=== PATIENT | male | born 1960 | race Hispanic/Latino ===

== ENCOUNTER 2018-11-22 09:54 | Emergency (ER) | payer BC ==
[2018-11-22 09:58] VITALS: BMI 34.7
[2018-11-22 10:01] VITALS: RESP 18; TEMP 98.4
[2018-11-22] MEDS ORDERED: Sodium Chloride 0.9% 500 ML IV STA ×2 (10:34→11:09)
--- NOTE | 2018-11-22 10:38 | ED PDOC ---
Arrival/HPI - History of Present Illness Narrative History of Present Illness (Text): 11/22/18 10:39 Patient is a 58 year old male with past medical history of Hodgkin's lymphoma s/p chemo and radiation, hypertension, obesity presenting with chief complaint of feeling dehydrated and anxious over the past few weeks. Patient states that recently he has been having poor PO intake and this has been causing him concern regarding the recurrence of his lymphoma. Denies fevers, chills, headache, dizziness, nausea, vomiting, chest pain, shortness of breath, abdominal pain, diarrhea, dysuria. Time/Duration: > week Symptom Onset: Gradual Symptom Course: Unchanged Severity Level: Mild <Curly Blakely L - Last Filed: 11/22/18 15:20> Past Medical History - Provider Review Nursing Documentation Reviewed: Yes - Cardiac Hx Cardiac Disorders: Yes Hx Hypertension: Yes Hx Pacemaker: No - Pulmonary Hx Respiratory Disorders: No - Neurological Hx Neurological Disorder: No Hx Paralysis: No - HEENT Hx HEENT Disorder: No - Renal Hx Renal Disorder: No - Hematological/Oncological Hx Blood Disorders: Yes Hx Blood Transfusions: No Hx Cancer: (Hodgkin's Lymphoma) - Integumentary Hx Dermatological Disorder: No - Musculoskeletal/Rheumatological Hx Musculoskeletal Disorders: No - Gastrointestinal Hx Gastrointestinal Disorders: Yes Hx Gastroesophageal Reflux: Yes - Genitourinary/Gynecological Hx Genitourinary Disorders: No - Psychiatric Hx Psychophysiologic Disorder: Yes Hx Anxiety: Yes Hx Emotional Abuse: No Hx Physical Abuse: No Hx Substance Use: No - Surgical History Hx Orthopedic Surgery: Yes - Anesthesia Hx Anesthesia Reactions: No Hx Malignant Hyperthermia: No - Suicidal Assessment Feels Threatened In Home Enviroment: No <Curly Blakely - Last Filed: 11/22/18 15:20> Family/Social History - Physician Review Nursing Documentation Reviewed: Yes Family/Social History: No Known Family HX Smoking Status: Never Smoked Hx Alcohol Use: Yes (SOCIALLY) Hx Substance Use: No <Curly Blakely - Last Filed: 11/22/18 15:20> Allergies/Home Meds <Curly Blakely - Last Filed: 11/22/18 15:20> <Ady Rashid L - Last Filed: 11/22/18 18:12> Allergies/Adverse Reactions: Allergies No Known Allergies Allergy (Verified 11/22/18 10:27) Home Medications: Home Meds Medication Instructions Recorded Confirmed Olmesartan/Hydrochlorothiazide 1 tab PO DAILY 11/22/18 11/22/18 [Benicar Hct 20-12.5 mg Tablet] Omeprazole Magnesium [Prilosec Otc] 20 mg PO DAILY 11/22/18 11/22/18 Review of Systems - Physician Review All systems were reviewed & negative as marked: Yes - Review of Systems Constitutional: Normal Respiratory: Normal Cardiovascular: Normal Gastrointestinal: Normal <ZoraCurly L - Last Filed: 11/22/18 15:20> Physical Exam Vital Signs Reviewed: Yes Vital Signs Temp Pulse Resp BP Pulse Ox 11/22/18 10:00 98.4 F 105 H 18 144/99 H 96 Temperature: Afebrile Blood Pressure: Hypertensive Pulse: Regular Respiratory Rate: Normal Appearance: Positive for: Well-Appearing, Comfortable Pain Distress: None Mental Status: Positive for: Alert and Oriented X 3 - Systems Exam Head: Present: Atraumatic, Normocephalic Pupils: Present: PERRL Extroacular Muscles: Present: EOMI Conjunctiva: Present: Normal Mouth: Present: Moist Mucous Membranes Respiratory/Chest: Present: Clear to Auscultation, Good Air Exchange. No: Respiratory Distress, Accessory Muscle Use Cardiovascular: Present: Regular Rate and Rhythm, Normal S1, S2 Abdomen: Present: Normal Bowel Sounds. No: Tenderness, Distention Lower Extremity: Present: Normal Inspection. No: Edema Neurological: Present: GCS=15, CN II-XII Intact, Speech Normal Skin: Present: Warm, Dry, Normal Color Lymphatic: No: Cervical Adenopathy Psychiatric: Present: Alert, Oriented x 3 <Curly Blakely L - Last Filed: 11/22/18 15:20> Vital Signs Temp Pulse Resp BP Pulse Ox 11/22/18 10:00 98.4 F 105 H 18 144/99 H 96 Temperature: Afebrile Blood Pressure: Normal Pulse: Regular Respiratory Rate: Normal Appearance: Positive for: Well-Appearing, Non-Toxic, Comfortable Pain Distress: None Mental Status: Positive for: Alert and Oriented X 3 - Systems Exam Head: Present: Atraumatic, Normocephalic Pupils: Present: PERRL Extroacular Muscles: Present: EOMI Conjunctiva: Present: Normal Mouth: Present: Moist Mucous Membranes Neck: Present: Normal Range of Motion Respiratory/Chest: Present: Clear to Auscultation, Good Air Exchange. No: Resp iratory Distress, Accessory Muscle Use Cardiovascular: Present: Regular Rate and Rhythm, Normal S1, S2. No: Murmurs Abdomen: Present: Normal Bowel Sounds. No: Tenderness, Distention, Peritoneal Signs Back: Present: Normal Inspection Upper Extremity: Present: Normal Inspection. No: Cyanosis, Edema Lower Extremity: Present: Normal Inspection. No: Edema Neurological: Present: GCS=15, CN II-XII Intact, Speech Normal Skin: Present: Warm, Dry, Normal Color. No: Rashes Psychiatric: Present: Alert, Oriented x 3, Normal Insight, Normal Concentration <Ady Rashid L - Last Filed: 11/22/18 18:12> Medical Decision Making ED Course and Treatment: 11/22/18 10:46 Impression: 58 year old male with feeling of dehydration and anxiety Plan: - CBC, CMP - IVF - Ativan - Metformin - Reassess and disposition Prior Visits: Notes and results from previous visits were reviewed. Progress Notes: 11/22/18 13:32 Diabetic nurse educator at bedside. - Medication Orders Current Medication Orders: Sodium Chloride (Sodium Chloride 0.9%) 500 mls @ 999 mls/hr IV .Q31M STA Stop: 11/22/18 11:04 Lorazepam (Ativan) 1 mg IVP ONCE ONE; Protocol Stop: 11/22/18 10:35 <Curly Blakely L - Last Filed: 11/22/18 15:20> ED Course and Treatment: 11/22/18 11:08 Patient Seen with Resident: In agreement with resident note which contains more details about the patient. Patient seen and evaluated with resident. Came up with plan and treatment together. 11/22/18 12:22 Patient was noted to have elevated glucose which is new for him. This is consistent with his symptoms of dry mouth and thirst. He used to see Dr. Ramon but he retired so now he wants to see Dr. Betancourt. On reassessment, patient is asymptomatic; no dizziness or lightheadedness. Disc ussed diabetic care and diet with patient, as well as importance of compliance with medication. He also was given the opportunity to speak to our Nurse Education for Diabetes who provided him with a glucometers and instructions/education. Discussed case with Dr. Robles, who will follow up in outpatient and informed that I will start him on Metformin. Advised patient to follow-up in outpatient with Dr. Robles and to return to the ED if symptoms worsen or any other concern. Patient also agrees to start taking his blood pressure meds again because he hasn't been taking them. he promises to be more compliant and he has plenty at home. - EKG Interpretation EKG Interpretation (Text): 11/22/18 11:36 Reviewed EKG, shows: Sinus Tachycardia at 105 BPM. Normal Intervals. No ST elevations. Interpreted by ED Physician: Yes Type: 12 lead EKG - Medication Orders Current Medication Orders: Discontinued Medications Sodium Chloride (Sodium Chloride 0.9%) 500 mls @ 999 mls/hr IV .Q31M STA Stop: 11/22/18 11:04 Last Admin: 11/22/18 10:54 Dose: 999 mls/hr eMAR Start Stop Document 11/22/18 10:54 MR (Rec: 11/22/18 10:54 MR [id number]) Intravenous Solution Start Date 11/22/18 Start Time 10:54 End Date 11/22/18 End time 11:24 Total Infusion Time 30 Lorazepam (Ativan) 1 mg IVP ONCE ONE; Protocol Stop: 11/22/18 10:35 Last Admin: 11/22/18 10:54 Dose: 1 mg IVP Administration Document 11/22/18 10:54 MR (Rec: 11/22/18 10:54 MR [id number]) Charges for Administration # of IVP Administrations 1 <Ady Rashid - Last Filed: 11/22/18 18:12> - PA / PUMPER HEAD / Resident Statement LARRY has reviewed & agrees with the documentation as recorded. LARRY has examined the patient and agrees with the treatment plan. <Ady Rashid - Last Filed: 11/22/18 18:12> Disposition/Present on Arrival - Present on Arrival Any Indicators Present on Arrival: No History of DVT/PE: No History of Uncontrolled Diabetes: No Urinary Catheter: No History of Decub. Ulcer: No History Surgical Site Infection Following: None - Disposition Have Diagnosis and Disposition been Completed?: Yes Disposition Time: 14:43 <Curly Blakely - Last Filed: 11/22/18 15:20> - Disposition Patient Plan: Discharge <Ady Rashid - Last Filed: 11/22/18 18:12> - Disposition Diagnosis: New onset type 2 diabetes mellitus Disposition: HOME/ ROUTINE Condition: IMPROVED Discharge Instructions (ExitCare): Type 2 Diabetes Additional Instructions: CONSTANTIN SANTANA, thank you for letting us take care of you today. Your provider was Ady Rashid DO and you were treated for New Onset Diabetes. The emergency medical care you received today was directed at your acute symptoms. If you were prescribed any medication, please fill it and take as directed. It may take several days for your symptoms to resolve. Return to the Emergency Department if your symptoms worsen, do not improve, or if you have any other problems. Please contact your doctor or call one of the physicians/clinics you have been referred to that are listed on the Patient Visit Information form that is included in your discharge packet. Bring any paperwork you were given at discharge with you along with any medications you are taking to your follow up visit. Our treatment cannot replace ongoing medical care by a primary care provider outside of the emergency department. Thank you for allowing the [facility] team to be part of your care today. If you had an X-Ray or CT scan: A Radiologist will review the ED reading if any change in treatment is needed we will contact you. If you had a blood, urine, or wound culture: It will take several days for the results, if any change in treatment is needed we will contact you. If you had an STI test: It will take 48 hours for the results. Please call after 1 week if you have not heard back. Prescriptions: metFORMIN [glucOPHAGE] 500 mg PO DAILY #30 tab Referrals: Chandler Robles MD [Staff Provider] - Follow up with primary Forms: [employer] (K[place]z), WORK NOTE
[2018-11-22 11:34] LABS: BASO # 0.03 {null, K/mm3} (0.0-2.0); BASO % 0.4 % (0.0-3.0); EOS % 0.3 % (1.5-5.0); HEMOGLOBIN 17.4 g/dL (14.0-18.0); LYMPH # 1.2 (1.2-3.4); LYMPH % 17.2 % (22.0-35.0); MEAN CELL VOLUME 90.6 fl (80.0-105.0); MEAN CORPUSCULAR HEMOGLOBIN 31.5 pg (25.0-35.0); MEAN CORPUSCULAR HGB CONC 34.8 g/dl (31.0-37.0); MEAN PLATELET VOLUME 10.6 fl (7.0-11.0); MONO # 0.6 (0.1-0.6); MONO % 8.9 % (1.0-6.0); RBC 5.52 {null, 10^6/uL} (3.5-6.1); RED CELL DISTRIBUTION WIDTH 12.3 % (11.5-14.5); WHITE BLOOD COUNT 6.7 {null, 10^3/uL} (4.5-11.0)
[2018-11-22 11:38] LABS: ALB/GLOB RATIO 1.5 (1.1-1.8); ALBUMIN 4.2 g/dL (3.0-4.8); ALT/SGPT 35 U/L (7-56); AST/SGOT 25 U/L (17-59); BLOOD UREA NITROGEN 25 mg/dL (7-21); CALCIUM 10.2 mg/dL (8.4-10.5); GFR NON-AFRICAN AMERICAN > 60
[2018-11-22 12:58] VITALS: BP 133/82; PULSE 94; O2SAT 98
--- NOTE | 2018-11-22 20:08 | CARD ---
APPROVED REPORT Date of service: 11/22/2018 EKG Measurement Heart [id number] <Conclusion> Sinus tachycardia Otherwise normal ECG
== END 2018-11-22 14:04 | disposition home or self-care (01) ==
LOC: ED 09:54
DX: E11.9 Type 2 diabetes mellitus without complications (principal); I10 Essential (primary) hypertension; E66.9 Obesity, unspecified; Z85.71 Personal history of Hodgkin lymphoma; Z92.21 Personal history of antineoplastic chemotherapy; Z92.3 Personal history of irradiation
CPT/HCPCS: 80053; 82948; 85025; 93005; 96374; 99285; J2060; J7040